=== PATIENT | female | born 1945 | race Caucasian/White ===

== ENCOUNTER → 2017-04-21 | Outpatient (CLI) | payer OTHER | LOC: FIMAGING 13:02 | PROVIDERS: ATTEND Family Medicine | DX: Z12.31 Encounter for screening mammogram for malignant neoplasm of breast (principal) | CPT/HCPCS: G0202 ==

== ENCOUNTER → 2017-06-17 | Outpatient (CLI) | payer OTHER | LOC: FIMAGING 13:28 | PROVIDERS: ATTEND Family Medicine | DX: Z13.820 Encounter for screening for osteoporosis (principal); R29.890 Loss of height; Z85.850 Personal history of malignant neoplasm of thyroid ==

== ENCOUNTER → 2017-08-26 | Outpatient (CLI) | payer OTHER ==
[~2017-08-26] MED LIST: GADOBUTROL 10 ML VIAL IVP ONE
== END ==
LOC: FIMAGING 15:11
PROVIDERS: ATTEND Physician Assistant Surgical
DX: M54.9 Dorsalgia, unspecified (principal); M51.26 Other intervertebral disc displacement, lumbar region; M48.061 Spinal stenosis, lumbar region without neurogenic claudication; M51.36 Other intervertebral disc degeneration, lumbar region; Z98.1 Arthrodesis status
CPT/HCPCS: 72110; 72158; A9585

== ENCOUNTER → 2018-01-14 | Outpatient (CLI) | payer OTHER | LOC: BMCIMAGING 09:14 | PROVIDERS: ATTEND Family Medicine | DX: J98.4 Other disorders of lung (principal) ==

== ENCOUNTER → 2018-04-22 | Outpatient (CLI) | payer OTHER | LOC: FIMAGING 11:59 | PROVIDERS: ATTEND Family Medicine | DX: Z12.31 Encounter for screening mammogram for malignant neoplasm of breast (principal); Z80.3 Family history of malignant neoplasm of breast ==

== ENCOUNTER → 2018-09-25 | Outpatient (CLI) | payer OTHER | LOC: FIMAGING 14:32 | PROVIDERS: ATTEND Neurological Surgery | DX: M54.5 Low back pain (principal); Z98.1 Arthrodesis status | CPT/HCPCS: 72158; A9585 ==

== ENCOUNTER → 2018-10-28 | Outpatient (CLI) | payer OTHER | LOC: FIMAGING 11:18 | PROVIDERS: ATTEND Physician Assistant Surgical | DX: Z09 Encounter for follow-up examination after completed treatment for conditions other than malignant neoplasm (principal); Z98.1 Arthrodesis status; M51.36 Other intervertebral disc degeneration, lumbar region; M51.37 Other intervertebral disc degeneration, lumbosacral region ==

== ENCOUNTER → 2019-04-23 | Outpatient (CLI) | payer OTHER | LOC: FIMAGING 15:29 ==